=== PATIENT | female | born 1975 | race Asian ===

== ENCOUNTER 2023-04-24 06:37 | Emergency (ER) | payer BC ==
[~2023-04-24] VITALS: Ht 157.5 cm; Wt 68.0 kg
[2023-04-24 06:54] VITALS: BP_SYST 153; PULSE 82; RESP 16; TEMP 96; O2SAT 95
[2023-04-24 08:25] VITALS: TEMP 97.6
[2023-04-24] MEDS ORDERED: ACETAMINOPHEN 500 MG TABLET PO ONE (08:30)
[2023-04-24] MEDS ORDERED: ACYC400T19 PO (09:10)
[2023-04-24] MEDS ORDERED: PRED20TA PO (09:10)
[2023-04-24 09:43] VITALS: BP_SYST 160; PULSE 75; RESP 15; O2SAT 98
== END 2023-04-24 09:42 | disposition home or self-care (01) ==
LOC: SED 06:37
DX: G51.0 Bell's palsy (principal); R20.2 Paresthesia of skin; Z79.899 Other long term (current) drug therapy
CPT/HCPCS: 70450-TC; 76376; 93005; 99284